=== PATIENT | female | born 1990 | race Caucasian/White ===

== ENCOUNTER 2017-08-27 10:19 | Inpatient (IN) | payer MEDICAID ==
[2017-08-27] MEDS: Lactated Ringers 1,000 ML IV SCH ×2 (10:50→15:37)
[2017-08-27] MEDS ORDERED: Sodium Chloride 0.9% 10 ML Syringe FLUSH PRN (11:17)
[2017-08-27] MEDS ORDERED: Nalbuphine 20 MG/1 ML Amp IVPUSH PRN (11:17)
[2017-08-27] MEDS ORDERED: Ondansetron 4 MG/2 ML SDV IVPUSH PRN ×2 (11:17→15:21)
--- NOTE | 2017-08-27 11:22 | PCM.LDHP ---
L&D History of Present Illness - General Date of Service: 08/27/17 Admit Problem/Dx: Patient Status Order with Admit Dx/Problem 08/27/17 11:18 Patient Status [ADT] Routine Admission Diagnosis/Problem Admission Diagnosis/Problem Normal Source of Information: Patient History Limitations: Reports: No Limitations - History of Present Illness Introduction:: Patient is a 27 y/o at 39 1/7 wks gestation who presents for IOL. Doing well today. Continues to have some bothersome contractions, but nothing patterned. No bleeding or LOF. No other concerns. - Related Data Allergies/Adverse Reactions: Allergies Allergy/AdvReac Type Severity Reaction Status Date / Time No Known Allergies Allergy Verified 07/01/15 21:49 Home Medications: Home Meds Amphetamine/Dextroamphetamine [Adderall] 20 mg PO DAILY 07/01/15 [History] Past Medical History [place] History: Reports: : 3 Para: 2 LMP (Approximate): Psychiatric History: Reports: ADHD - Past Surgical History GI Surgical History: Reports: Appendectomy Social & Family History - Family History Oncologic: Reports: Breast, Colon, Lung - Tobacco Use Smoking Status *Q: Former Smoker Years of Tobacco use: 6 Packs/Tins Daily: 0.5 - Alcohol Use Alcohol Use History: No - Recreational Drug Use Recreational Drug Use: No H&P Review of Systems - Review of Systems: Review Of Systems: See Below General: Reports: No Symptoms Pulmonary: Reports: No Symptoms Cardiovascular: Reports: No Symptoms Gastrointestinal: Reports: No Symptoms Genitourinary: Reports: No Symptoms Musculoskeletal: Reports: No Symptoms Psychiatric: Reports: No Symptoms L&D Exam - Exam Exam: See Below - Vital Signs Weight: 101.605 kg - OB Specific Contraction Intensity: Irritability Movement: Active Heart Tones: Present Heart Tones per Min: 130 Heart Rate (FHR) Variability: Moderate (6-25 bmp) Presentation: Vertex (Documented on bedside US - slightly oblique) - Connell Score Connell Score Cervix Position: Posterior Connell Score Consistency: Soft Connell Score Effacement: 51-70% Connell Score Dilation: 1-2 cm Connell Score 's Station: -3 Connell Score Total: 5 - Exam General: Alert, Oriented, Cooperative Lungs: Clear to Auscultation, Normal Respiratory Effort Cardiovascular: Regular Rate, Regular Rhythm GI/Abdominal Exam: Soft, Non-Tender Genitourinary: Normal external exam Extremities: Normal Inspection Skin: Warm, Dry, Intact - Patient Data Result Diagrams: 08/27/17 11:30 - Problem List (1) 39 weeks gestation of SNOMED Code(s): 29299510 ICD Code: Z3A.39 - 39 WEEKS GESTATION OF Status: Acute Current Visit: Yes (2) Rh negative state in antepartum period SNOMED Code(s): 528765106 ICD Code: O09.899 - SUPERVISION OF OTHER HIGH RISK PREGNANCIES, UNSP TRIMESTER; Z67.91 - UNSPECIFIED BLOOD TYPE, RH NEGATIVE Status: Acute Current Visit: Yes (3) Rubella non-immune status, antepartum SNOMED Code(s): 528101618 ICD Code: O99.89 - OTH DISEASES AND CONDITIONS COMPL PREG/CHLDBRTH; Z28.3 - UNDERIMMUNIZATION STATUS Status: Acute Current Visit: Yes (4) ADHD SNOMED Code(s): 355161358 ICD Code: F90.9 - ATTENTION-DEFICIT HYPERACTIVITY DISORDER, UNSPECIFIED TYPE Status: Acute Current Visit: Yes Qualifiers: Attention deficit-hyperactivity disorder type: unspecified Qualified Code(s ): F90.9 - Attention-deficit hyperactivity disorder, unspecified type Problem List Initiated/Reviewed/Updated: Yes Orders Last 24hrs: Active Orders 24 hr Category Date Time Status Patient Status [ADT] Routine ADT 08/27/17 11:18 Ordered Activity as Tolerated [RC] PFP Care 08/27/17 11:17 Ordered Communication Order [RC] ASDIRECTED Care 08/27/17 11:17 Ordered Communication Order [RC] ASDIRECTED Care 08/27/17 11:17 Ordered Communication Order [RC] ASDIRECTED Care 08/27/17 11:17 Ordered Heart Tones [RC] ASDIRECTED Care 08/27/17 11:18 Ordered Monitoring [RC] INTERMITTENT Care 08/27/17 11:17 Ordered Notify Provider [RC] ASDIRECTED Care 08/27/17 11:17 Ordered Notify Provider [RC] PFP Care 08/27/17 11:17 Ordered Notify Provider [RC] PRN Care 08/27/17 11:17 Ordered Peripheral IV Care [RC] . DIRECTED Care 08/27/17 11:18 Ordered Up ad Genny [RC] ASDIRECTED Care 08/27/17 11:17 Ordered Vaginal Exam [RC] ASDIRECTED Care 08/27/17 11:17 Ordered Vital Signs [RC] ASDIRECTED Care 08/27/17 11:17 Ordered Vital Signs [RC] PER UNIT ROUTINE Care 08/27/17 11:17 Ordered Regular Diet [DIET] Diet 08/27/17 Breakfast Ordered CBC W/O DIFF,HEMOGRAM [HEME] Routine Lab 08/27/17 11:17 Ordered TYPE AND SCREEN [BBK] Routine Lab 08/27/17 11:17 Ordered Lactated Ringers [Ringers, Lactated] 1,000 ml Med 08/27/17 11:30 Ordered IV ASDIRECTED Lactated Ringers [Ringers, Lactated] 1,000 ml Med 08/27/17 11:30 Ordered IV ASDIRECTED Nalbuphine [Nubain] Med 08/27/17 11:17 Ordered 10 mg IVPUSH Q2H PRN Ondansetron [Zofran] Med 08/27/17 11:17 Ordered 4 mg IVPUSH Q4H PRN Oxytocin/Lactated Ringers [Pitocin in LR 10 Units/1,000 Med 08/27/17 11:30 Ordered ML] 10 unit in 1,000 ml IV .CONTINUOUS Oxytocin/Lactated Ringers [Pitocin in LR 10 Units/1,000 Med 08/27/17 11:30 Ordered ML] 10 unit in 1,000 ml IV TITRATE Sodium Chloride 0.9% [Saline Flush] Med 08/27/17 11:17 Ordered 10 ml FLUSH ASDIRECTED PRN Electronic Heart Tones Ext w TOCO [WOMSER] Oth 08/27/17 11:17 Ordered Routine Electronic Heart Tones Internal [WOMSER] Per Unit Oth 08/27/17 11:17 Ordered Routine Peripheral IV Insertion Adult [OM.PC] Routine Oth 08/27/17 11:17 Ordered Peripheral IV Insertion Adult [OM.PC] Routine Oth 08/27/17 11:17 Ordered Resuscitation Status Routine Resus Stat 08/27/17 11:17 Ordered Medication Orders Lactated Ringer's (Ringers, Lactated) 1,000 mls @ 40 mls/hr IV ASDIRECTED ALYSSA Lactated Ringer's (Ringers, Lactated) 1,000 mls @ 100 mls/hr IV ASDIRECTED ALYSSA Oxytocin/Lactated Ringer's (Pitocin In Lr 10 Units/1,000 Ml) 10 unit in 1,000 mls @ 12 mls/hr IV TITRATE ALYSSA; 2 MUNITS/MIN PRN Reason: Protocol Oxytocin/Lactated Ringer's (Pitocin In Lr 10 Units/1,000 Ml) 10 unit in 1,000 mls @ 500 mls/hr IV .CONTINUOUS ALYSSA Nalbuphine HCl (Nubain) 10 mg IVPUSH Q2H PRN PRN Reason: Pain (moderate 4-6) Ondansetron HCl (Zofran) 4 mg IVPUSH Q4H PRN PRN Reason: Nausea/Vomiting Sodium Chloride (Saline Flush) 10 ml FLUSH ASDIRECTED PRN PRN Reason: Keep Vein Open Assessment/Plan Comment:: 27 y/o at 39 1/7 wks who presents for elective IOL * CBC and T&S * Start pitocin to bring baby lower in pelvis. Will AROM when able * GBS negative, no need for antibiotics * Pain management per patient preference * Anticipate * MMR after delivery * Will assess blood type after delivery to see if additional Rhogam required
[2017-08-27] MEDS ORDERED: Lactated Ringers 1,000 ML IV SCH (11:30)
[2017-08-27] MEDS ORDERED: Oxytocin/Lactated Ringers 10 UNIT/1,000 ML BAG IV SCH ×2 (11:30)
[2017-08-27] MEDS ORDERED: Bupivacaine 0.25% 10 ML SDV ONE (13:00)
[2017-08-27] MEDS ORDERED: fentaNYL 100 MCG/2 ML SDV EPIDUR PRN (15:21)
[2017-08-27] MEDS ORDERED: ePHEDrine 50 MG/ML SDV IVPUSH PRN (15:21)
[2017-08-27] MEDS ORDERED: diphenhydrAMINE 50 MG/ML SDV IVPUSH PRN (15:21)
[2017-08-27] MEDS ORDERED: Bupivacaine/fentaNYL/NS 100 ML Bag EPIDUR SCH (15:30)
--- NOTE | 2017-08-27 15:38 | PCM.PREANE ---
Preanesthetic Assessment - Anesthesia/Transfusion/Family Hx Anesthesia History: Prior Anesthesia Without Reaction Family History of Anesthesia Reaction: No Transfusion History: No Prior Transfusion(s) - Review of Systems General: No Symptoms Pulmonary: No Symptoms Cardiovascular: No Symptoms Gastrointestinal: No Symptoms Neurological: Other (Lower back pain. Chronic. ) Other: Reports: None (ADHD) - Physical Assessment Pulse: 89 O2 Sat by Pulse Oximetry: 98 Respiratory Rate: 18 Blood Pressure: 119/65 Temperature: 36.4 C Vital Signs: Last Vital Signs Temp 36.4 C 08/27/17 11:17 Pulse 89 08/27/17 13:30 Resp BP 119/65 08/27/17 13:30 Pulse Ox Height: 1.65 m Weight: 101.605 kg ASA Class: 2 Mental Status: Alert & Oriented x3 Dentition: Reports: Normal Dentition Thyro-Mental Finger Breadths: 3 Mouth Opening Finger Breadths: 3 ROM/Head Extension: Full Lungs: Clear to Auscultation, Normal Respiratory Effort Cardiovascular: Regular Rate, Regular Rhythm - Lab Values: Laboratory Last Values WBC 10.69 K/mm3 (3.98-10.04) H 08/27/17 11:30 RBC 4.23 M/mm3 (3.98-5.22) 08/27/17 11:30 Hgb 10.9 gm/L (11.2-15.7) L 08/27/17 11:30 Hct 33.2 % (34.1-44.9) L 08/27/17 11:30 MCV 78.5 fl (79.4-94.8) L 08/27/17 11:30 MCH 25.8 pg (25.6-32.2) 08/27/17 11:30 MCHC 32.8 g/dl (32.2-35.5) 08/27/17 11:30 RDW Std Deviation 40.5 fL (36.4-46.3) 08/27/17 11:30 Plt Count 271 K/mm3 (182-369) 08/27/17 11:30 MPV 10.9 fl (9.4-12.3) 08/27/17 11:30 Blood Type A NEGATIVE 08/27/17 11:30 Gel Antibody Screen Negative 08/27/17 11:30 - Allergies Allergies/Adverse Reactions: Allergies Allergy/AdvReac Type Severity Reaction Status Date / Time No Known Allergies Allergy Verified 07/01/15 21:49 - Acknowledgements Anesthesia Type Planned: Epidural Pt an Appropriate Candidate for the Planned Anesthesia: Yes Alternatives and Risks of Anesthesia Discussed w Pt/Guardian: Yes Pt/Guardian Understands and Agrees with Anesthesia Plan: Yes PreAnesthesia Questionnaire Gastrointestinal History: Reports: 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: Psychiatric History: Reports: ADHD - Past Surgical History GI Surgical History: Reports: Appendectomy - SUBSTANCE USE Smoking Status *Q: Former Smoker Tobacco Use Within Last Twelve Months: Cigarettes Second Hand Smoke Exposure: Yes Recreational Drug Use History: No - HOME MEDS Home Medications: Home Meds Amphetamine/Dextroamphetamine [Adderall] 20 mg PO DAILY 07/01/15 [History] - CURRENT (IN HOUSE) MEDS Current Meds: Current Medications Diphenhydramine HCl (Benadryl) 25 mg IVPUSH Q6H PRN PRN Reason: Pruritis Ephedrine Sulfate (Ephedrine Sulfate) 5 mg IVPUSH ASDIRECTED PRN PRN Reason: Hypotension Fentanyl (Sublimaze) 100 mcg EPIDUR ONETIME PRN PRN Reason: Pain Fentanyl/Bupivacaine HCl (Fentanyl/Bupivacaine/Ns 2 Mcg-0.125% 100 Ml) 100 ml EPIDUR ASDIRECTED ALYSSA Lactated Ringer's (Ringers, Lactated) 1,000 mls @ 40 mls/hr IV ASDIRECTED ALYSSA Lactated Ringer's (Ringers, Lactated) 1,000 mls @ 100 mls/hr IV ASDIRECTED ALYSSA Last Admin: 08/27/17 10:50 Dose: 100 mls/hr Oxytocin/Lactated Ringer's (Pitocin In Lr 10 Units/1,000 Ml) 10 unit in 1,000 mls @ 12 mls/hr IV TITRATE ALYSSA; 2 MUNITS/MIN PRN Reason: Protocol Last Titration: 08/27/17 14:42 Dose: 6 munits/min, 36 mls/hr Oxytocin/Lactated Ringer's (Pitocin In Lr 10 Units/1,000 Ml) 10 unit in 1,000 mls @ 500 mls/hr IV .CONTINUOUS ALYSSA Nalbuphine HCl (Nubain) 10 mg IVPUSH Q2H PRN PRN Reason: Pain (moderate 4-6) Ondansetron HCl (Zofran) 4 mg IVPUSH Q4H PRN PRN Reason: Nausea/Vomiting Ondansetron HCl (Zofran) 4 mg IVPUSH ONETIME PRN PRN Reason: Nausea/Vomiting Sodium Chloride (Saline Flush) 10 ml FLUSH ASDIRECTED PRN PRN Reason: Keep Vein Open
--- NOTE | 2017-08-27 16:59 | PCM.PNLD ---
Labor Progress Note - VS & Meds Vital Signs: Last Vital Signs Temp 36.4 C 08/27/17 15:38 Pulse 89 08/27/17 15:38 Resp 18 08/27/17 15:38 BP 119/65 08/27/17 15:38 Pulse Ox 98 08/27/17 15:38 Active Medications: Current Medications Diphenhydramine HCl (Benadryl) 25 mg IVPUSH Q6H PRN PRN Reason: Pruritis Ephedrine Sulfate (Ephedrine Sulfate) 5 mg IVPUSH ASDIRECTED PRN PRN Reason: Hypotension Fentanyl (Sublimaze) 100 mcg EPIDUR ONETIME PRN PRN Reason: Pain Fentanyl/Bupivacaine HCl (Fentanyl/Bupivacaine/Ns 2 Mcg-0.125% 100 Ml) 100 ml EPIDUR ASDIRECTED ALYSSA Lactated Ringer's (Ringers, Lactated) 1,000 mls @ 40 mls/hr IV ASDIRECTED ALYSSA Lactated Ringer's (Ringers, Lactated) 1,000 mls @ 100 mls/hr IV ASDIRECTED ALYSSA Last Admin: 08/27/17 15:37 Dose: 100 mls/hr Oxytocin/Lactated Ringer's (Pitocin In Lr 10 Units/1,000 Ml) 10 unit in 1,000 mls @ 12 mls/hr IV TITRATE ALYSSA; 2 MUNITS/MIN PRN Reason: Protocol Last Titration: 08/27/17 14:42 Dose: 6 munits/min, 36 mls/hr Oxytocin/Lactated Ringer's (Pitocin In Lr 10 Units/1,000 Ml) 10 unit in 1,000 mls @ 500 mls/hr IV .CONTINUOUS ALYSSA Nalbuphine HCl (Nubain) 10 mg IVPUSH Q2H PRN PRN Reason: Pain (moderate 4-6) Ondansetron HCl (Zofran) 4 mg IVPUSH Q4H PRN PRN Reason: Nausea/Vomiting Ondansetron HCl (Zofran) 4 mg IVPUSH ONETIME PRN PRN Reason: Nausea/Vomiting Sodium Chloride (Saline Flush) 10 ml FLUSH ASDIRECTED PRN PRN Reason: Keep Vein Open - Uterine Contractions Uterine Monitoring Mode: External Combes Contraction Intensity: Mild to Moderate - Monitoring Monitor Mode: External Ultrasound Heart Rate (FHR) Baseline: 130 Heart Rate (FHR) Variability: Moderate (6-25 bmp) Accelerations: Present, 15x15 Decelerations: None Strip Review: Category I - Vaginal Exam Dilation (cm): 4 Effacement (Percent): 70 Station: -3 Cervical Position: Midposition Vaginal Exam Comment: Patient 3-4 with resting exam, but when contracts cervix feels about 5 cm dilated - Labor Progress (Free Text) Labor Progress: Doing well on pitocin. AROM performed with release of scant amount of clear fluid. Continue present management.
--- NOTE | 2017-08-27 18:50 | PCM.SN ---
- Free Text/Narrative Note: Attempted epidural placement. Sterile prep and drape. Landmarks difficult to palpate. Epidural needle advanced and repositioned at 3 sites. Bone contacted and unable to reposition needle to located epidural space. [employer] called for assistance. Patient rapidly progressing. Currently at [address] Vega present. Will proceed with a labor spinal at this time. Patient agrees. Spinal attempted at L3-4 with only bone contact. Moved up to L2-3 and was able to obtain free flowing clear CSF, transient right paresthesia that terminated on its own prior to injection of bupivacaine. Patient comfortable.
--- NOTE | 2017-08-27 19:25 | PCM.DEL ---
L & D Note - General Info Date of Service: 08/27/17 - Delivery Note Labor: Induced by ARM, Induced by Oxytocin Delivery Outcome: Livebirth Infant Delivery Method: Spontaneous Vaginal Delivery-Single Infant Delivery Mode: Spontaneous Presentation: Right Occiput Anterior (KRISHNA) Nuchal Cord: None Anesthesia Type: Spinal Amniotic Fluid Description: Clear Episiotomy Type: None Laceration: None Placenta: Intact, Spontaneous Cord: 3 Vessels Resuscitation Needed: Yes Score 1 min: 2 Score 5 min: 9 Delivery Comments (Free Text/Narrative):: Patient began pushing when complete at 1840. At 1847 there was a bradycardia down to the 70's mostly with some recovery into the 90's at times. Patient only 0 station at that time. She was encouraged to continue pushing. During this time baby did have some decelerations into the 60's. Once station had reached +2 decision made to proceed with VAVD given NRFS. head in ROP presentation. Maternal pushing effort was good and the pelvis was felt to be adequate for an instrument assisted delivery. Given distress the decision was made to proceed with vacuum assisted vaginal delivery. The mushroom cup was placed without difficulty with care to avoid the vaginal side christianson. Subsequent vacuum assisted vaginal delivery with pushing over less than 45 seconds. Total pressure applied 550 mm Hg. Total pop offs 0. Suction was removed following delivery of the head. No nuchal cord. The remainder of the infant delivered without difficulty. The umbilical cord was clamped and cut and the infant was handed to awaiting nursing team for resuscitation. Placenta allowed time to separate and expelled intact. Inspection of the perineum following delivery with no lacerations. Vacuum Extractor Progress Note - Alternative Labor Strategies Considered Alternative Labor Strategies Considered:: Reports: Yes Strategies Considered:: Reports: Contraction Intensity Adequate Indications Considered:: Reports: Yes Indications:: Reports: Suspicion of Immediate or Potential Compromise Time Out:: Reports: Yes - Patient Prepared Patient Prepared:: Reports: Yes Informed Consent:: Reports: Verbal Risks: Reports: Yes Risks Include:: Reports: Laceration, Shoulder Dystocia, Maternal Injury Anesthesia/Analgesia Adequate:: Reports: Yes - Probability of Success High Probability of Success:: Reports: Yes Weight Estimated:: Reports: AGA Patient Diabetic:: Reports: No Pelvis Adequate:: Reports: Yes Asynclitic:: Reports: No - Application Time Maximum Application Time & Number of Pop-Offs Predetermined:: Reports: Yes Maximum Pressure Maintained in Green [place] (cm Hg):: 550 Total Application Time (min): *max=20min: 1 Number of Times Cup Disengaged:: 0 Type of Vacuum Used:: Reports: Cup: Mushroom type - Exit Strategy Exit strategy available:: Reports: Yes and resuscitation teams readily available:: Reports: Yes - Patient Data Vitals - Most Recent: Last Vital Signs Temp 36.4 C 08/27/17 15:38 Pulse 89 08/27/17 15:38 Resp 18 08/27/17 15:38 BP 119/65 08/27/17 15:38 Pulse Ox 98 08/27/17 15:38 Weight - Most Recent: 101.605 kg I&O - Last 24 Hours: Intake & Output 08/27/17 08/27/17 08/27/17 06:59 14:59 22:59 Intake Total 300 Balance 300 Lab Results Last 24 Hours: Laboratory Results - last 24 hr 08/27/17 08/27/17 08/27/17 Range/Units 11:30 11:30 19:09 WBC 10.69 H (3.98-10.04) K/mm3 RBC 4.23 (3.98-5.22) M/mm3 Hgb 10.9 L (11.2-15.7) gm/L Hct 33.2 L (34.1-44.9) % MCV 78.5 L (79.4-94.8) fl MCH 25.8 (25.6-32.2) pg MCHC 32.8 (32.2-35.5) g/dl RDW Std Deviation 40.5 (36.4-46.3) fL Plt Count 271 (182-369) K/mm3 MPV 10.9 (9.4-12.3) fl Cord ABG pH 7.03 L (7.22-7.32) Cord ABG pCO2 99.3 H (42-58) Cord ABG pO2 8 L (12-24) Cord ABG HCO3 25.0 (24-26) Cord ABG Base Excess -11.0 L (-5.5-0.1) Cord VBG pH 7.09 L (7.28-7.40) Cord VBG pCO2 86.1 H (32.8-38.6) Cord VBG pO2 13 L (28-32) Cord VBG HCO3 25.1 H (19-24) Cord VBG Base Excess -8.9 L (-4.4-0.4) Blood Type A NEGATIVE Gel Antibody Screen Negative Med Orders - Current: Current Medications Diphenhydramine HCl (Benadryl) 25 mg IVPUSH Q6H PRN PRN Reason: Pruritis Ephedrine Sulfate (Ephedrine Sulfate) 5 mg IVPUSH ASDIRECTED PRN PRN Reason: Hypotension Fentanyl (Sublimaze) 100 mcg EPIDUR ONETIME PRN PRN Reason: Pain Last Admin: 08/27/17 17:30 Dose: 100 mcg Fentanyl/Bupivacaine HCl (Fentanyl/Bupivacaine/Ns 2 Mcg-0.125% 100 Ml) 100 ml EPIDUR ASDIRECTED ALYSSA Last Admin: 08/27/17 17:31 Dose: 100 ml Lactated Ringer's (Ringers, Lactated) 1,000 mls @ 40 mls/hr IV ASDIRECTED ALYSSA Lactated Ringer's (Ringers, Lactated) 1,000 mls @ 100 mls/hr IV ASDIRECTED ALYSSA Last Admin: 08/27/17 15:37 Dose: 100 mls/hr Oxytocin/Lactated Ringer's (Pitocin In Lr 10 Units/1,000 Ml) 10 unit in 1,000 mls @ 12 mls/hr IV TITRATE ALYSSA; 2 MUNITS/MIN PRN Reason: Protocol Last Titration: 08/27/17 14:42 Dose: 6 munits/min, 36 mls/hr Oxytocin/Lactated Ringer's (Pitocin In Lr 10 Units/1,000 Ml) 10 unit in 1,000 mls @ 500 mls/hr IV .CONTINUOUS ALYSSA Nalbuphine HCl (Nubain) 10 mg IVPUSH Q2H PRN PRN Reason: Pain (moderate 4-6) Last Admin: 08/27/17 18:13 Dose: 10 mg Ondansetron HCl (Zofran) 4 mg IVPUSH Q4H PRN PRN Reason: Nausea/Vomiting Ondansetron HCl (Zofran) 4 mg IVPUSH ONETIME PRN PRN Reason: Nausea/Vomiting Sodium Chloride (Saline Flush) 10 ml FLUSH ASDIRECTED PRN PRN Reason: Keep Vein Open - Problem List & Annotations (1) 39 weeks gestation of SNOMED Code(s): 56824672 Code(s): Z3A.39 - 39 WEEKS GESTATION OF Status: Acute Current Visit: Yes (2) Rh negative state in antepartum period SNOMED Code(s): 986828836 Code(s): O09.899 - SUPERVISION OF OTHER HIGH RISK PREGNANCIES, UNSP TRIMESTER ; Z67.91 - UNSPECIFIED BLOOD TYPE, RH NEGATIVE Status: Acute Current Visit: Yes (3) Rubella non-immune status, antepartum SNOMED Code(s): 936147666 Code(s): O99.89 - OTH DISEASES AND CONDITIONS COMPL PREG/CHLDBRTH; Z28.3 - UNDERIMMUNIZATION STATUS Status: Acute Current Visit: Yes (4) ADHD SNOMED Code(s): 165011546 Code(s): F90.9 - ATTENTION-DEFICIT HYPERACTIVITY DISORDER, UNSPECIFIED TYPE Status: Acute Current Visit: Yes Qualifiers: Attention deficit-hyperactivity disorder type: unspecified Qualified Code(s ): F90.9 - Attention-deficit hyperactivity disorder, unspecified type (5) Vacuum extractor delivery, delivered SNOMED Code(s): 381644583 Code(s): O66.5 - ATTEMPTED APPLICATION OF VACUUM EXTRACTOR AND FORCEPS Status: Acute Current Visit: Yes - Problem List Review Problem List Initiated/Reviewed/Updated: Yes - My Orders Last 24 Hours: My Active Orders 08/27/17 11:17 Activity as Tolerated [RC] PFP Communication Order [RC] ASDIRECTED Communication Order [RC] ASDIRECTED Communication Order [RC] ASDIRECTED Notify Provider [RC] ASDIRECTED Notify Provider [RC] PFP Notify Provider [RC] PRN Up ad Genny [RC] ASDIRECTED Vaginal Exam [RC] ASDIRECTED Vital Signs [RC] ASDIRECTED Nalbuphine [Nubain] 10 mg IVPUSH Q2H PRN Ondansetron [Zofran] 4 mg IVPUSH Q4H PRN Sodium Chloride 0.9% [Saline Flush] 10 ml FLUSH ASDIRECTED PRN Electronic Heart Tones Ext w TOCO [WOMSER] Routine Electronic Heart Tones Internal [WOMSER] Per Unit Routine Peripheral IV Insertion Adult [OM.PC] Routine Peripheral IV Insertion Adult [OM.PC] Routine Resuscitation Status Routine 08/27/17 11:18 Patient Status [ADT] Routine Heart Tones [RC] ASDIRECTED Peripheral IV Care [RC] . DIRECTED 08/27/17 11:30 Lactated Ringers [Ringers, Lactated] 1,000 ml IV ASDIRECTED Lactated Ringers [Ringers, Lactated] 1,000 ml IV ASDIRECTED Oxytocin/Lactated Ringers [Pitocin in LR 10 Units/1,000 ML] 10 unit in 1,000 ml IV .CONTINUOUS Oxytocin/Lactated Ringers [Pitocin in LR 10 Units/1,000 ML] 10 unit in 1,000 ml IV TITRATE 08/27/17 Breakfast Regular Diet [DIET] - Assessment Assessment:: 27 y/o PPD#0 from VAVD at 39 1/7 wks - Plan Plan:: * Routine cares * Encourage breast feeding * MMR after delivery * Will assess baby blood type to see if additional Rhogam required * Discharge home in 1-2 days
[2017-08-27] MEDS ORDERED: Acetaminophen 325 MG Tab PO PRN (19:40)
[2017-08-27] MEDS ORDERED: Docusate Sodium 100 MG Cap PO PRN (19:40)
[2017-08-27] MEDS ORDERED: Benzocaine/Menthol 20%-0.5% Spray 56 GM Canister TOP PRN (19:40)
[2017-08-27] MEDS ORDERED: Lanolin 100% Cream 7 GM Tube TOP PRN (19:40)
[2017-08-27] MEDS ORDERED: Ibuprofen 600 MG Tab PO PRN (19:40)
[2017-08-27] MEDS ORDERED: Witch Hazel Medicated Pads 100/Jar TOP PRN (19:40)
--- NOTE | 2017-08-28 07:34 | PCM.DCSUM1 ---
Discharge Summary - Discharge Data Discharge Date: 08/28/17 Discharge Disposition: Home, Self-Care 01 Condition: Good - Discharge Diagnosis/Problem(s) (1) 39 weeks gestation of SNOMED Code(s): 23662676 ICD Code: Z3A.39 - 39 WEEKS GESTATION OF Status: Acute Current Visit: Yes (2) Rh negative state in antepartum period SNOMED Code(s): 713796139 ICD Code: O09.899 - SUPERVISION OF OTHER HIGH RISK PREGNANCIES, UNSP TRIMESTER; Z67.91 - UNSPECIFIED BLOOD TYPE, RH NEGATIVE Status: Acute Current Visit: Yes (3) Rubella non-immune status, antepartum SNOMED Code(s): 713080193 ICD Code: O99.89 - OTH DISEASES AND CONDITIONS COMPL PREG/CHLDBRTH; Z28.3 - UNDERIMMUNIZATION STATUS Status: Acute Current Visit: Yes (4) ADHD SNOMED Code(s): 586731033 ICD Code: F90.9 - ATTENTION-DEFICIT HYPERACTIVITY DISORDER, UNSPECIFIED TYPE Status: Acute Current Visit: Yes Qualifiers: Attention deficit-hyperactivity disorder type: unspecified Qualified Code(s ): F90.9 - Attention-deficit hyperactivity disorder, unspecified type (5) Vacuum extractor delivery, delivered SNOMED Code(s): 347509293 ICD Code: O66.5 - ATTEMPTED APPLICATION OF VACUUM EXTRACTOR AND FORCEPS Status: Acute Current Visit: Yes - Patient Summary/Data Complications: None Consults: None Recommended Follow-up Testing/Procedures: Follow up in 3-6 weeks for check Hospital Course: 27 y/o admitted at 39 1/7 wks gestation for IOL. This was done wtih pitiocin and ROM. She progressed well to complete dilation. She did have a terminal bradycardia which required VAVD. She delivery note for full details. she did well and was discharged home on PPD#1 - Patient Instructions Diet: Regular Diet as Tolerated Diet, Other: Pelvic Rest for 6 weeks Activity: As Tolerated Activity, Other: Pelvic Rest for 6 weeks Driving: May Drive Today Showering/Bathing: May Shower Showering/Bathing, Other: May bathe Notify Provider of: Fever, Increased Pain, Swelling and Redness, Drainage, Nausea and/or Vomiting - Discharge Plan Home Medications: Home Meds Docusate Sodium [Colace] 100 mg PO BID PRN cap 03/22/18 [Rx] Ibuprofen [IJD: Ibuprofen] 600 mg PO Q6H PRN tablet 08/27/17 [Rx] Patient Handouts: Care After Vaginal Delivery Referrals: Holli Vega MD [Primary Care Provider] - (3-5 weeks for post check ) - Discharge Summary/Plan Comment DC Time >30 min.: No - Patient Data Vitals - Most Recent: Last Vital Signs Temp 36.4 C 08/27/17 15:38 Pulse 114 H 08/27/17 21:27 Resp 18 08/27/17 21:27 BP 128/63 08/27/17 21:27 Pulse Ox 97 08/27/17 21:27 Weight - Most Recent: 101.605 kg I&O - Last 24 hours: Intake & Output 08/27/17 08/28/17 08/28/17 22:59 06:59 14:59 Intake Total 2300 Balance 2300 Lab Results - Last 24 hrs: Laboratory Results - last 24 hr 08/27/17 08/27/17 08/27/17 Range/Units 11:30 11:30 19:09 WBC 10.69 H (3.98-10.04) K/mm3 RBC 4.23 (3.98-5.22) M/mm3 Hgb 10.9 L (11.2-15.7) gm/L Hct 33.2 L (34.1-44.9) % MCV 78.5 L (79.4-94.8) fl MCH 25.8 (25.6-32.2) pg MCHC 32.8 (32.2-35.5) g/dl RDW Std Deviation 40.5 (36.4-46.3) fL Plt Count 271 (182-369) K/mm3 MPV 10.9 (9.4-12.3) fl Cord ABG pH 7.03 L (7.22-7.32) Cord ABG pCO2 99.3 H (42-58) Cord ABG pO2 8 L (12-24) Cord ABG HCO3 25.0 (24-26) Cord ABG Base Excess -11.0 L (-5.5-0.1) Cord VBG pH 7.09 L (7.28-7.40) Cord VBG pCO2 86.1 H (32.8-38.6) Cord VBG pO2 13 L (28-32) Cord VBG HCO3 25.1 H (19-24) Cord VBG Base Excess -8.9 L (-4.4-0.4) Blood Type A NEGATIVE Gel Antibody Screen Negative Med Orders - Current: Current Medications Acetaminophen (Tylenol) 650 mg PO Q4H PRN PRN Reason: mild pain or fever Benzocaine/Menthol (Dermoplast Pain Relief [place]) 0 gm TOP ASDIRECTED PRN PRN Reason: Perineal Comfort Measure Docusate Sodium (Colace) 100 mg PO BID PRN PRN Reason: Constipation Emollient Ointment (Lansinoh Hpa) 0 gm TOP ASDIRECTED PRN PRN Reason: Sore Nipples Ibuprofen (Motrin) 600 mg PO Q6H PRN PRN Reason: Mild pain or fever Last Admin: 08/28/17 00:38 Dose: 600 mg Witch Radha (Tucks) 1 pad TOP ASDIRECTED PRN PRN Reason: Hemorrhoid pain Discontinued Medications Diphenhydramine HCl (Benadryl) 25 mg IVPUSH Q6H PRN PRN Reason: Pruritis Ephedrine Sulfate (Ephedrine Sulfate) 5 mg IVPUSH ASDIRECTED PRN PRN Reason: Hypotension Fentanyl (Sublimaze) 100 mcg EPIDUR ONETIME PRN PRN Reason: Pain Last Admin: 08/27/17 17:30 Dose: 100 mcg Fentanyl/Bupivacaine HCl (Fentanyl/Bupivacaine/Ns 2 Mcg-0.125% 100 Ml) 100 ml EPIDUR ASDIRECTED ALYSSA Last Admin: 08/27/17 17:31 Dose: 100 ml Lactated Ringer's (Ringers, Lactated) 1,000 mls @ 40 mls/hr IV ASDIRECTED ALYSSA Lactated Ringer's (Ringers, Lactated) 1,000 mls @ 100 mls/hr IV ASDIRECTED ALYSSA Last Admin: 08/27/17 15:37 Dose: 100 mls/hr Oxytocin/Lactated Ringer's (Pitocin In Lr 10 Units/1,000 Ml) 10 unit in 1,000 mls @ 12 mls/hr IV TITRATE ALYSSA; 2 MUNITS/MIN PRN Reason: Protocol Last Titration: 08/27/17 14:42 Dose: 6 munits/min, 36 mls/hr Oxytocin/Lactated Ringer's (Pitocin In Lr 10 Units/1,000 Ml) 10 unit in 1,000 mls @ 500 mls/hr IV .CONTINUOUS ALYSSA Nalbuphine HCl (Nubain) 10 mg IVPUSH Q2H PRN PRN Reason: Pain (moderate 4-6) Last Admin: 08/27/17 18:13 Dose: 10 mg Ondansetron HCl (Zofran) 4 mg IVPUSH Q4H PRN PRN Reason: Nausea/Vomiting Ondansetron HCl (Zofran) 4 mg IVPUSH ONETIME PRN PRN Reason: Nausea/Vomiting Sodium Chloride (Saline Flush) 10 ml FLUSH ASDIRECTED PRN PRN Reason: Keep Vein Open *Q Meaningful Use (DIS) - VTE *Q VTE Criteria *Q: - Stroke *Q Stroke Criteria *Q: - AMI *Q AMI Criteria *Q:
--- NOTE | 2017-08-28 07:34 | PCM.PNPP ---
- General Info Date of Service: 08/28/17 Functional Status: Reports: Pain Controlled, Tolerating Diet, Ambulating, Urinating - Review of Systems General: Reports: No Symptoms Pulmonary: Reports: No Symptoms Cardiovascular: Reports: No Symptoms Gastrointestinal: Reports: No Symptoms Genitourinary: Reports: No Symptoms Musculoskeletal: Reports: No Symptoms - Patient Data Vital Signs - Most Recent: Last Vital Signs Temp 36.4 C 08/27/17 15:38 Pulse 114 H 08/27/17 21:27 Resp 18 08/27/17 21:27 BP 128/63 08/27/17 21:27 Pulse Ox 97 08/27/17 21:27 Weight - Most Recent: 101.605 kg I&O - Last 24 Hours: Intake & Output 08/27/17 08/28/17 08/28/17 22:59 06:59 14:59 Intake Total 2300 Balance 2300 Lab Results - Last 24 Hours: Laboratory Results - last 24 hr 08/27/17 08/27/17 08/27/17 Range/Units 11:30 11:30 19:09 WBC 10.69 H (3.98-10.04) K/mm3 RBC 4.23 (3.98-5.22) M/mm3 Hgb 10.9 L (11.2-15.7) gm/L Hct 33.2 L (34.1-44.9) % MCV 78.5 L (79.4-94.8) fl MCH 25.8 (25.6-32.2) pg MCHC 32.8 (32.2-35.5) g/dl RDW Std Deviation 40.5 (36.4-46.3) fL Plt Count 271 (182-369) K/mm3 MPV 10.9 (9.4-12.3) fl Cord ABG pH 7.03 L (7.22-7.32) Cord ABG pCO2 99.3 H (42-58) Cord ABG pO2 8 L (12-24) Cord ABG HCO3 25.0 (24-26) Cord ABG Base Excess -11.0 L (-5.5-0.1) Cord VBG pH 7.09 L (7.28-7.40) Cord VBG pCO2 86.1 H (32.8-38.6) Cord VBG pO2 13 L (28-32) Cord VBG HCO3 25.1 H (19-24) Cord VBG Base Excess -8.9 L (-4.4-0.4) Blood Type A NEGATIVE Gel Antibody Screen Negative Med Orders - Current: Current Medications Acetaminophen (Tylenol) 650 mg PO Q4H PRN PRN Reason: mild pain or fever Benzocaine/Menthol (Dermoplast Pain Relief [place]) 0 gm TOP ASDIRECTED PRN PRN Reason: Perineal Comfort Measure Docusate Sodium (Colace) 100 mg PO BID PRN PRN Reason: Constipation Emollient Ointment (Lansinoh Hpa) 0 gm TOP ASDIRECTED PRN PRN Reason: Sore Nipples Ibuprofen (Motrin) 600 mg PO Q6H PRN PRN Reason: Mild pain or fever Last Admin: 08/28/17 00:38 Dose: 600 mg Witch Radha (Tucks) 1 pad TOP ASDIRECTED PRN PRN Reason: Hemorrhoid pain Discontinued Medications Diphenhydramine HCl (Benadryl) 25 mg IVPUSH Q6H PRN PRN Reason: Pruritis Ephedrine Sulfate (Ephedrine Sulfate) 5 mg IVPUSH ASDIRECTED PRN PRN Reason: Hypotension Fentanyl (Sublimaze) 100 mcg EPIDUR ONETIME PRN PRN Reason: Pain Last Admin: 08/27/17 17:30 Dose: 100 mcg Fentanyl/Bupivacaine HCl (Fentanyl/Bupivacaine/Ns 2 Mcg-0.125% 100 Ml) 100 ml EPIDUR ASDIRECTED ALYSSA Last Admin: 08/27/17 17:31 Dose: 100 ml Lactated Ringer's (Ringers, Lactated) 1,000 mls @ 40 mls/hr IV ASDIRECTED ALYSSA Lactated Ringer's (Ringers, Lactated) 1,000 mls @ 100 mls/hr IV ASDIRECTED ALYSSA Last Admin: 08/27/17 15:37 Dose: 100 mls/hr Oxytocin/Lactated Ringer's (Pitocin In Lr 10 Units/1,000 Ml) 10 unit in 1,000 mls @ 12 mls/hr IV TITRATE ALYSSA; 2 MUNITS/MIN PRN Reason: Protocol Last Titration: 08/27/17 14:42 Dose: 6 munits/min, 36 mls/hr Oxytocin/Lactated Ringer's (Pitocin In Lr 10 Units/1,000 Ml) 10 unit in 1,000 mls @ 500 mls/hr IV .CONTINUOUS ALYSSA Nalbuphine HCl (Nubain) 10 mg IVPUSH Q2H PRN PRN Reason: Pain (moderate 4-6) Last Admin: 08/27/17 18:13 Dose: 10 mg Ondansetron HCl (Zofran) 4 mg IVPUSH Q4H PRN PRN Reason: Nausea/Vomiting Ondansetron HCl (Zofran) 4 mg IVPUSH ONETIME PRN PRN Reason: Nausea/Vomiting Sodium Chloride (Saline Flush) 10 ml FLUSH ASDIRECTED PRN PRN Reason: Keep Vein Open - Infant Interaction Disposition, : in Room with Family Infant Interaction: Holding Infant Feeding: Breastfed Infant; Nursed Well Support Person: Significant Other - Recovery Exam Fundal Tone: Firm Fundal Level: 1 Fingerbreadths Above Umbilicus Fundal Placement: Midline Lochia Amount: Small Perineum Description: Intact, Minimal Bruising/Swelling Episiotomy/Laceration: None Bladder Status: Voiding Urinary Elimination: Voided - Exam General: Alert, Oriented, Cooperative Lungs: Rub GI/Abdominal Exam: Soft, Non-Tender Extremities: Normal Inspection - Problem List & Annotations (1) 39 weeks gestation of SNOMED Code(s): 86115636 Code(s): Z3A.39 - 39 WEEKS GESTATION OF Status: Acute Current Visit: Yes (2) Rh negative state in antepartum period SNOMED Code(s): 727873157 Code(s): O09.899 - SUPERVISION OF OTHER HIGH RISK PREGNANCIES, UNSP TRIMESTER ; Z67.91 - UNSPECIFIED BLOOD TYPE, RH NEGATIVE Status: Acute Current Visit: Yes (3) Rubella non-immune status, antepartum SNOMED Code(s): 539735154 Code(s): O99.89 - OTH DISEASES AND CONDITIONS COMPL PREG/CHLDBRTH; Z28.3 - UNDERIMMUNIZATION STATUS Status: Acute Current Visit: Yes (4) ADHD SNOMED Code(s): 256696471 Code(s): F90.9 - ATTENTION-DEFICIT HYPERACTIVITY DISORDER, UNSPECIFIED TYPE Status: Acute Current Visit: Yes Qualifiers: Attention deficit-hyperactivity disorder type: unspecified Qualified Code(s ): F90.9 - Attention-deficit hyperactivity disorder, unspecified type (5) Vacuum extractor delivery, delivered SNOMED Code(s): 795706561 Code(s): O66.5 - ATTEMPTED APPLICATION OF VACUUM EXTRACTOR AND FORCEPS Status: Acute Current Visit: Yes - Problem List Review Problem List Initiated/Reviewed/Updated: Yes - My Orders Last 24 Hours: My Active Orders 08/27/17 11:17 Resuscitation Status Routine 08/27/17 19:40 Activity as Tolerated [RC] .PRN Vital Signs [RC] 04,12,20 Acetaminophen [Tylenol] 650 mg PO Q4H PRN Benzocaine/Menthol [Dermoplast Pain Relief [place]] See Dose Instructions TOP ASDIRECTED PRN Docusate Sodium [Colace] 100 mg PO BID PRN Ibuprofen [Motrin] 600 mg PO Q6H PRN Lanolin [Lansinoh HPA] See Dose Instructions TOP ASDIRECTED PRN Witch Radha [Tucks] 1 pad TOP ASDIRECTED PRN Assess Lochia [WOMSER] Per Unit Routine Assess Uterine Involution [WOMSER] Per Unit Routine Breast Pump [WOMSER] Per Unit Routine Ice Therapy [OM.PC] Per Unit Routine Perineal Care [OM.PC] Per Unit Routine Peripheral IV Discontinue [OM.PC] Routine Sitz Bath [OM.PC] Per Unit Routine 08/27/17 19:45 Heat Therapy [OM.PC] PRN 08/27/17 Dinner Regular Diet [DIET] 08/28/17 19:45 Heat Therapy [OM.PC] PRN - Assessment Assessment:: 27 y/o PPD#1 from VAVD at 39 1/7 wks - Plan Plan:: * Routine cares * Encourage breast feeding * Patient declines MMR * Baby Rh negative. No need for further Rhogam * Discharge home today
--- NOTE | 2017-08-28 09:07 | PCM48HPAN ---
Post Anesthesia Note - EVALUATION WITHIN 48HRS OF ANESTHETIC Vital Signs in Normal Range: Yes Patient Participated in Evaluation: Yes Respiratory Function Stable: Yes Airway Patent: Yes Cardiovascular Function Stable: Yes Hydration Status Stable: Yes Pain Control Satisfactory: Yes Nausea and Vomiting Control Satisfactory: Yes Mental Status Recovered: Yes
[2017-08-28 11:40] VITALS: BP 116/59
== END 2017-08-28 20:10 | disposition home or self-care (01) | DRG 775 ==
LOC: JD.OB 10:19 → OBSVTOIN 18:57 → JD.OB 18:57
PROVIDERS: ADMIT Obstetrics & Gynecology; ATTEND Obstetrics & Gynecology
PROC: 10D07Z6 Extraction of Products of Conception, Vacuum, Via Natural or Artificial Opening (ICD-10-PCS; principal; 2017-08-27)
PROC: 3E033VJ Introduction of Other Hormone into Peripheral Vein, Percutaneous Approach (ICD-10-PCS; 2017-08-27)
PROC: 10907ZC Drainage of Amniotic Fluid, Therapeutic from Products of Conception, Via Natural or Artificial Opening (ICD-10-PCS; 2017-08-27)
PROC: 00HU33Z Insertion of Infusion Device into Spinal Canal, Percutaneous Approach (ICD-10-PCS; 2017-08-27)
PROC: 3E0R3BZ Introduction of Anesthetic Agent into Spinal Canal, Percutaneous Approach (ICD-10-PCS; 2017-08-27)
DX: O75.89 Other specified complications of labor and delivery (principal); F90.9 Attention-deficit hyperactivity disorder, unspecified type; O76 Abnormality in fetal heart rate and rhythm complicating labor and delivery; Z3A.39 39 weeks gestation of pregnancy; Z37.0 Single live birth; Z87.891 Personal history of nicotine dependence; Z79.899 Other long term (current) drug therapy
CPT/HCPCS: 01967; 36415; 36600; 59409; 82803; 85027; 86850; 86900; 86901; A9270-GY; J2300; J2590; J3010; J7120